=== PATIENT | male | born 1995 | race African-American/Black ===

== ENCOUNTER 2022-10-24 15:29 | Emergency (ER) | payer MEDICAID ==
[~2022-10-24] VITALS: Ht 185.4 cm; Wt 106.1 kg
[~2022-10-24 15:29] MED LIST: IBUP-974 PO
[2022-10-24 15:38] VITALS: BP 152/97
--- NOTE | 2022-10-24 15:45 | NUR ---
PT STATED HES BEEN WORKING AROUND FUMES AT WORK WHILE WORKING. Just started the job 2 weeks ago.
--- NOTE | 2022-10-24 16:19 | NUR ---
Patient discharged with v/s stable. Written and verbal after care instructions given. Patient verbalized understanding. Ambulatory with steady gait. All questions addressed prior to discharge. Advised to follow up with PMD.
== END 2022-10-24 16:19 | disposition home or self-care (01) ==
LOC: MED 15:29
DX: R43.2 Parageusia (principal); R43.8 Other disturbances of smell and taste; J45.909 Unspecified asthma, uncomplicated; F12.90 Cannabis use, unspecified, uncomplicated; Z79.899 Other long term (current) drug therapy
CPT/HCPCS: 99281